=== PATIENT | female | born 1985 | race Caucasian/White ===

== ENCOUNTER 2018-07-20 02:14 | Emergency (ER) | payer MEDICAID ==
[~2018-07-20] VITALS: Ht 157.5 cm; Wt 73.6 kg
[2018-07-20 02:19] VITALS: Ht 157.5 cm; Wt 73.6 kg
[2018-07-20] MEDS ORDERED: CHARCOAL/SORBITOL 50 GM/240 ML BTL PO ONE (03:00)
[2018-07-20] MEDS ORDERED: SOD CHLORIDE 0.9% 1,000 ML IV STA (03:13)
[2018-07-20] MEDS ORDERED: ONDANSETRON 4 MG INJ ONE (04:21)
[2018-07-20] MEDS ORDERED: ONDANSETRON 4 MG INJ IV ONE (04:25)
--- NOTE | 2018-07-20 04:56 | ERD ---
ER Documentation Chief Complaint Chief Complaint BIB RA90 for intentional overdose on Zoloft HPI History is obtained from patient and EMS. This is a 32-year-old female with a history of anxiety who presents to the ER for evaluation of suicide attempt. The patient did take 2 tabs of 15 mg Zoloft at 6 PM, took an additional 8 tabs of 15 mg Zoloft at 2 AM. She states that she has been feeling stressed and took the medication to herself. The patient denies any other coingestions and came to the ER today for evaluation of her symptoms by EMS ROS All systems reviewed and are negative except as per history of present illness. Allergies Allergies: Coded Allergies: No Known Allergy (Unverified , 07/20/18) PMhx/Soc History of Surgery: Yes (RHINOPLASTY 04/04/19) Anesthesia Reaction: No Hx Neurological Disorder: No Hx Respiratory Disorders: No Hx Cardiac Disorders: No Hx Psychiatric Problems: No Hx Miscellaneous Medical Probl: No Hx Alcohol Use: Yes (SOCIALLY ) Hx Substance Use: No Hx Tobacco Use: No Smoking Status: Never smoker Physical Exam Vitals Vital Signs Date Temp Pulse Resp B/P (MAP) Pulse Ox O2 O2 Flow FiO2 Time Delivery Rate 07/20/18 110 21 134/87 100 Room Air 02:27 (103) 07/20/18 98.2 105 24 134/87 100 02:19 (103) Physical Exam INITIAL VITAL SIGNS: Reviewed by me GENERAL: The patient is well developed and appropriate for usual state of health in no apparent distress HEENT: Dry mucous members, pupils equal, round, and reactive to light. EOMI. There is no scleral icterus. NECK: C-spine is soft and supple, there is no meningismus. There is no cervical lymphadenopathy. LUNGS: Clear to auscultation bilaterally. There are no rales, wheezes or rhonchi. HEART: Regular rate and rhythm, no murmurs, clicks, rubs or gallops. ABDOMEN: Soft, non-tender, non-distended. There are bowel sounds in all four quadrants. No rebound or guarding. EXTREMITIES: There is no peripheral cyanosis or edema. No focal swelling or er ythema. NEUROLOGICAL: No myoclonus, no hyperreflexia, the patient moves all four extremities with 5/5 strength. Cranial nerves II - XII are intact. Normal gait. Alert and oriented SKIN: There is no apparent rash or petechiae. HEME/LYMPHATIC: There is no evidence of excessive bruising or lymphedema. PSYCHIATRIC: The patient does is agitated and anxious. Result Diagram: 07/20/1830207/20/18302 Results 24 hrs Laboratory Tests Test 07/20/18 03:03 White Blood Count 8.2 10^3/ul Red Blood Count 4.56 10^6/ul Hemoglobin 12.6 g/dl Hematocrit 38.1 % Mean Corpuscular Volume 83.6 fl Mean Corpuscular Hemoglobin 27.6 pg Mean Corpuscular Hemoglobin Concent 33.1 g/dl Red Cell Distribution Width 13.0 % Platelet Count 279 10^3/UL Mean Platelet Volume 10.4 fl Immature Granulocytes % 0.400 % Neutrophils % 73.3 % Lymphocytes % 21.5 % Monocytes % 4.0 % Eosinophils % 0.6 % Basophils % 0.2 % Nucleated Red Blood Cells % 0.0 /100WBC Immature Granulocytes # 0.030 10^3/ul Neutrophils # 6.0 10^3/ul Lymphocytes # 1.8 10^3/ul Monocytes # 0.3 10^3/ul Eosinophils # 0.1 10^3/ul Basophils # 0.0 10^3/ul Nucleated Red Blood Cells # 0.0 10^3/ul Urine Color YELLOW Urine Clarity CLEAR Urine pH 5.0 Urine Specific [place] 1.013 Urine Ketones TRACE mg/dL Urine Nitrite NEGATIVE mg/dL Urine Bilirubin NEGATIVE mg/dL Urine Urobilinogen NEGATIVE mg/dL Urine Leukocyte Esterase NEGATIVE Jayson/ul Urine Hemoglobin NEGATIVE mg/dL Urine Glucose NEGATIVE mg/dL Urine Total Protein NEGATIVE mg/dl Sodium Level 140 mmol/L Potassium Level 3.8 mmol/L Chloride Level 106 mmol/L Carbon Dioxide Level 22 mmol/L Anion Gap 12 Blood Urea Nitrogen 11 mg/dl Creatinine 0.57 mg/dl Est Glomerular Filtrat Rate mL/min > 60 mL/min Glucose Level 168 mg/dl Calcium Level 9.1 mg/dl Total Bilirubin 0.3 mg/dl Direct Bilirubin 0.00 mg/dl Indirect Bilirubin 0.3 mg/dl Aspartate Amino Transf (AST/SGOT) 29 IU/L Alanine Aminotransferase (ALT/SGPT) 26 IU/L Alkaline Phosphatase 82 IU/L Total Protein 7.7 g/dl Albumin 4.4 g/dl Globulin 3.30 g/dl Albumin/Globulin Ratio 1.33 Salicylates Level < 1.0 mg/dl Urine Opiates Screen Negative Acetaminophen Level < 10.0 ug/ml Urine Barbiturates Negative Urine Amphetamines Screen Negative Urine Benzodiazepines Screen Negative Urine Cocaine Screen Negative Urine Cannabinoids Negative Ethyl Alcohol Level < 10.0 mg/dl Current Medications Medications Dose Sig/Nella Start Time Status Last (Trade) Ordered Route PRN Stop Time Admin Dose Reason Admin 50 gm ONCE ONCE 07/20/18 DC 07/20/18 Charcoal/Sorb PO 03:00 02:46 itol 07/20/18 03:01 (Actidose (Sorbitol)) Sodium 1,000 ml @ Q1H STAT 07/20/18 DC 07/20/18 Chloride 1,000 mls/hr IV 03:13 03:13 07/20/18 04:12 Ondansetron 4 mg STK-MED 07/20/18 DC HCl (Zofran ONCE .ROUTE 04:21 Inj) 07/20/18 04:22 Ondansetron 4 mg ONCE ONCE 07/20/18 DC 07/20/18 HCl (Zofran IV 04:25 04:30 Inj) 07/20/18 04:26 Procedures/MDM EKG: Rate/Rhythm: Sinus tachycardia QRS, ST, T-waves: [No changes consistent w/ acute ischemia] Impression: [No evidence of ischemia or arrhythmia] This 32-year-old female presents the ER after ingesting a total of 500 mg of Zoloft. On my exam the patient is afebrile however she is tachycardic. The patient is alert oriented to person place and time however she does have an anxious affect. She was given activated charcoal however she did vomit. She was given IV fluids. Lab work was obtained which is normal at this time. The patient has no hyperreflexia, no myoclonus, no signs of serotonin syndrome at this time. We did contact poison control who recommends a 6-hour observation in the emergency room. This patient will need to be observed until 8 AM. At that point patient will need to be reevaluated in if she has no signs of serotonin syndrome the patient is medically cleared and can be evaluated by tele-psych for determination of placement. Critical Care: Excluding all billable procedures Time: 44 minutes Treatments/Evaluations: Close monitoring and treatment of unstable vital signs, cardiorespiratory, and neurologic status, while maintaining tight balance of fluid, respiratory, and cardiac interventions. Departure Diagnosis: Primary Impression: Intentional drug overdose Additional Impression: SSRI overdose Condition: GLENN Arevalo DO Jul 20, 2018 04:56
[2018-07-20] MEDS ORDERED: PROP10TA6 PO (05:12)
--- NOTE | 2018-07-20 07:51 | PSY ---
Date/Time of Note Date/Time of Note DATE: 07/20/18 TIME: 07:27 Psychiatric Subjective Eval Consent Pt consented to telemedicine: Yes Subjective Evaluation Patient location: emergency Chief Complaint: BIB RA90 for intentional overdose on Zoloft Reason for consult: "I took my first pill of antidepressants..." History of present illness She stated that she took her first dose of anti-depressant (Zoloft) today and felt "wild" and "super suicidal." She also has been sleeping very little the past few nights. She said she went to [place] [facility] because she was hallucinating due to pain in her head. At [facility] she was scared by a homeless man with a doll and left. Around 1am she took a large number of Zoloft because she is "tired of waking up and looking at myself and now I am hallucinating." She said at first she thought she would go to sleep when she took the pills and then later said she did think she would . She took about 7 pills (all she had). She stated this was a spontaneous act and unplanned. She stated she has had some hallucinations since being in the ED. When asked for specifics she stated, "Well, I pooped the bed." When asked specifically if she had been seeing or hearing things other people could not she stated, "Not yet." When asked if she currently had thoughts about wanting to be or kill herself she said, "No." Past psychiatric history Diagnosed with PTSD due to a bad nose job and was started on Zoloft. Hospitalization: no Family History No family history. 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 Psychiatric Objective Eval Mental Status Examination: Appearance: Groomed Eye Contact: Good Psychomotor Activity: Normal Behavior: Cooperative Speech: Clear, Prolong Speech Latency AFFECT: Blunt Mood: Anxious Though Process: Illogical Thought Content: Normal Suicidal: No Homicidal: No On 72 hour hold: No Orientation: x2 Cognition: Alert Insight: Impared Judgement: Impared Attention Span: Intact Laboratory Results Laboratory Tests Test 07/20/18 03:03 White Blood Count 8.2 10^3/ul Red Blood Count 4.56 10^6/ul Hemoglobin 12.6 g/dl Hematocrit 38.1 % Mean Corpuscular Volume 83.6 fl Mean Corpuscular Hemoglobin 27.6 pg Mean Corpuscular Hemoglobin Concent 33.1 g/dl Red Cell Distribution Width 13.0 % Platelet Count 279 10^3/UL Mean Platelet Volume 10.4 fl Immature Granulocytes % 0.400 % Neutrophils % 73.3 % Lymphocytes % 21.5 % Monocytes % 4.0 % Eosinophils % 0.6 % Basophils % 0.2 % Nucleated Red Blood Cells % 0.0 /100WBC Immature Granulocytes # 0.030 10^3/ul Neutrophils # 6.0 10^3/ul Lymphocytes # 1.8 10^3/ul Monocytes # 0.3 10^3/ul Eosinophils # 0.1 10^3/ul Basophils # 0.0 10^3/ul Nucleated Red Blood Cells # 0.0 10^3/ul Urine Color YELLOW Urine Clarity CLEAR Urine pH 5.0 Urine Specific [place] 1.013 Urine Ketones TRACE mg/dL Urine Nitrite NEGATIVE mg/dL Urine Bilirubin NEGATIVE mg/dL Urine Urobilinogen NEGATIVE mg/dL Urine Leukocyte Esterase NEGATIVE Jayson/ul Urine Hemoglobin NEGATIVE mg/dL Urine Glucose NEGATIVE mg/dL Urine Total Protein NEGATIVE mg/dl Sodium Level 140 mmol/L Potassium Level 3.8 mmol/L Chloride Level 106 mmol/L Carbon Dioxide Level 22 mmol/L Anion Gap 12 Blood Urea Nitrogen 11 mg/dl Creatinine 0.57 mg/dl Est Glomerular Filtrat Rate mL/min > 60 mL/min Glucose Level 168 mg/dl Calcium Level 9.1 mg/dl Total Bilirubin 0.3 mg/dl Direct Bilirubin 0.00 mg/dl Indirect Bilirubin 0.3 mg/dl Aspartate Amino Transf (AST/SGOT) 29 IU/L Alanine Aminotransferase (ALT/SGPT) 26 IU/L Alkaline Phosphatase 82 IU/L Total Protein 7.7 g/dl Albumin 4.4 g/dl Globulin 3.30 g/dl Albumin/Globulin Ratio 1.33 Salicylates Level < 1.0 mg/dl Urine Opiates Screen Negative Acetaminophen Level < 10.0 ug/ml Urine Barbiturates Negative Urine Amphetamines Screen Negative Urine Benzodiazepines Screen Negative Urine Cocaine Screen Negative Urine Cannabinoids Negative Ethyl Alcohol Level < 10.0 mg/dl Assessment and Plan Assessment/Diagnosis Diagnosis Adjustment Disorder with Depressed Mood Recommendation/Plan Multiple antipsychotics: No Discharge Disposition: Psychiatric inpatient Legal Status: Voluntary Other Individual had a significant overdose tonight and, on exam, has an abnormal mental status exam with prolonged speech latency and odd responses to questions at times (eg said "I pooped the bed" when asked about hallucinations). Recommend inpatient admission for safety and further observation. Explained this to patient and who agreed. She does meet 5150 DTS criteria if she changed her mind and could be placed on a hold if needed. SHELIA LINDSEY MD Jul 20, 2018 07:37
--- NOTE | 2018-07-20 14:56 | EN ---
Date/Time of Note Date/Time of Note DATE: 07/20/18 TIME: 14:55 ER Progress Note Observation Note: Time: 4 hours Evaluation: Multiple exams showed improving symptoms and no evidence of clinical decompensation. Patient is now medically cleared, she was evaluated by psychiatry who was placed on a voluntary hold. TAN OSBORN MD Jul 20, 2018 14:56
[2018-07-20 17:47] VITALS: BP 143/92; PULSE 102; RESP 18
== END 2018-07-20 18:04 ==
LOC: E/R 02:14
DX: T43.222A Poisoning by selective serotonin reuptake inhibitors, intentional self-harm, initial encounter (principal); R40.2362 Coma scale, best motor response, obeys commands, at arrival to emergency department; R00.0 Tachycardia, unspecified
CPT/HCPCS: 80053; 80307; 81003; 84703; 85025; 93005; J2405; J7030; Z7610; 36415; 96374

== ENCOUNTER 2018-09-03 05:50 | Emergency (ER) | payer MEDICAID ==
[~2018-09-03] VITALS: Ht 154.9 cm; Wt 68.2 kg
[~2018-09-03 05:50] MED LIST: PROP10TA6 PO
[2018-09-03 05:52] VITALS: Ht 154.9 cm; Wt 68.2 kg
--- NOTE | 2018-09-03 07:18 | PSY ---
Date/Time of Note Date/Time of Note DATE: 09/03/18 TIME: 07:17 Psychiatric Subjective Eval Consent Pt consented to telemedicine: Yes Subjective Evaluation Patient location: emergency Chief Complaint: BIB [employer],took Melatonin 20 tabs & THC 200 mg,denies SI/HI,hx psych Medical history Problems Medical Problems: (1) Intentional drug overdose Status: Acute (2) SSRI overdose Status: Acute Allergies: Coded Allergies: No Known Allergy (Unverified , 07/20/18) Psychiatric Objective Eval Mental Status Examination: Laboratory Results Laboratory Tests Test 09/03/18 06:25 09/03/18 06:35 White Blood Count 8.7 10^3/ul Red Blood Count 5.09 10^6/ul Hemoglobin 13.8 g/dl Hematocrit 42.4 % Mean Corpuscular Volume 83.3 fl Mean Corpuscular Hemoglobin 27.1 pg Mean Corpuscular Hemoglobin Concent 32.5 g/dl Red Cell Distribution Width 14.5 % Platelet Count 349 10^3/UL Mean Platelet Volume 10.0 fl Immature Granulocytes % 0.500 % Neutrophils % 72.7 % Lymphocytes % 22.2 % Monocytes % 4.2 % Eosinophils % 0.1 % Basophils % 0.3 % Nucleated Red Blood Cells % 0.0 /100WBC Immature Granulocytes # 0.040 10^3/ul Neutrophils # 6.4 10^3/ul Lymphocytes # 1.9 10^3/ul Monocytes # 0.4 10^3/ul Eosinophils # 0.0 10^3/ul Basophils # 0.0 10^3/ul Nucleated Red Blood Cells # 0.0 10^3/ul Urine Color STRAW Urine Clarity CLEAR Urine pH 7.0 Urine Specific [place] 1.011 Urine Ketones NEGATIVE mg/dL Urine Nitrite NEGATIVE mg/dL Urine Bilirubin 1+ mg/dL Urine Urobilinogen NEGATIVE mg/dL Urine Leukocyte Esterase NEGATIVE Jayson/ul Urine Microscopic RBC 0 /HPF Urine Microscopic WBC 1 /HPF Urine Squamous Epithelial Cells FEW /HPF Urine Bacteria FEW /HPF Urine Hemoglobin NEGATIVE mg/dL Urine Glucose NEGATIVE mg/dL Urine Total Protein 1+ mg/dl Sodium Level 140 mmol/L Potassium Level 3.7 mmol/L Chloride Level 105 mmol/L Carbon Dioxide Level 14 mmol/L Anion Gap 21 Blood Urea Nitrogen 5 mg/dl Creatinine 0.71 mg/dl Est Glomerular Filtrat Rate mL/min > 60 mL/min Glucose Level 194 mg/dl Calcium Level 9.7 mg/dl Total Bilirubin 0.8 mg/dl Direct Bilirubin 0.00 mg/dl Indirect Bilirubin 0.8 mg/dl Aspartate Amino Transf (AST/SGOT) 28 IU/L Alanine Aminotransferase (ALT/SGPT) 15 IU/L Alkaline Phosphatase 83 IU/L Total Protein 8.2 g/dl Albumin 4.7 g/dl Globulin 3.50 g/dl Albumin/Globulin Ratio 1.34 Serum HCG, Qualitative NEGATIVE Acetaminophen Level < 10.0 ug/ml Ethyl Alcohol Level < 10.0 mg/dl POC Beta HCG, Qualitative NEGATIVE Assessment and Plan Recommendation/Plan Discharge Disposition: Psychiatric inpatient Legal Status: Place involuntary hold Assessment Additional comments: IDENTIFYING INFORMATION: 33 year old Female patient who is currently located at the hospital and for whom psychiatric consultation was requested. SOURCES OF INFORMATION: The patient who appears to be somewhat reliable and the medical records; the nursing staff. CHIEF COMPLAINT: "the medications took me over the edge". HISTORY OF PRESENT ILLNESS: The patient was interviewed via telemedicine in the presence of and under the supervision of nursing staff of the hospital. The consent to conducting this interview via telemedicine was obtained by the nursing staff at the hospital. The patient reports having been depressed lately, has not slept for 8 days, partial anhedonia, reports that she was running towards traffic for unclear reasons, was feeling anxious and was thinking suicide at times. Reports that she took 15 melatonin tablets, CBD oil, 3 antibiotic pills earlier today because she wanted to sleep. The patient denies having low appetite, AH, VH. The patient denies using alcohol heavily or regularly. The patient denies using any other substances. In terms of past psychiatric history, the patient reports having a history of 1 past psychiatric hospitalization. The patient reports having a history of no past suicide attempts. PAST MEDICAL HISTORY: none. CURRENT MEDICATIONS: none. ALLERGIES TO MEDICATIONS: NKDA. LABORATORY TESTS: CBC within normal range,, CMP pending, UDS pending, alcohol level pending, test negative, SOCIAL HISTORY: , 2 children; employed as a hairdresser. REVIEW OF SYSTEMS: Constitutional (e.g., fever, weight loss): negative; Eyes, Ears, Nose, Mouth, Throat: negative; Cardiovascular: negative; Respiratory: negative; Gastrointestinal: negative; Genitourinary: negative; Musculoskeletal: negative; Integumentary (skin and/or breast): negative; Neurological: negative; Psychiatric: as per HPI; Endocrine: negative; Hematologic/Lymphatic: negative; Allergic/Immunologic: negative. MENTAL STATUS EXAMINATION: General Appearance and Behavior: Calm, cooperative with the interview, pleasant with the current interviewer, makes fair eye contact, fairly groomed, no abnormal movements noted, Speech: Regular rate, regular rhythm, normal latency, normal volume, somewhat decreased amount, Flow of thought: sequential, logical, goal-directed, Content of thought: no auditory hallucinations, no visual hallucinations, no delusions, positive for suicidal ideation; no homicidal ideation, Mood: "depressed", Affect: dysthymic, dysphoric, not reactive, Attention: normal based on the interview, Insight: fair, Judgment: poor, Memory: normal based on the interview, Sensorium: alert and oriented to person, place and date. ASSESSMENT: The patient's presentation and history are consistent with the diagnosis of unspecified mood disorder. The patient presents in a major depressive episode in the context of medication noncompliance, psychosocial stressors. No evidence of psychosis, espinoza, hypomania on exam. PLAN: - Medication management: Would start haloperidol 5 mg IM PRN severe agitation q4 hours. Would start lorazepam 2 mg IM PRN severe agitation q4 hours Will defer to the inpatient psychiatry team for other medication changes. - Labs: Please check CMP, Alcohol level, UDS. - Psychotherapy: Provided supportive psychotherapy and psychoeducation. - Disposition: Would recommend involuntary admission to the inpatient psychiatric unit given the severity of the patient's psychiatric condition and the fact that the patient is an imminent danger to self and/or others so long as the patient has been cleared medically for admission to psychiatry. Inpatient psychiatric adm ission is at this time the least restrictive environment where the patient can receive the psychiatric care that is needed. Would place on suicide precautions. The patient fulfills criteria for being placed on an involuntary hold for being a danger to self due to a psychiatric disorder. Discussed about the above plan with Dr. Pruitt. ISAURA LOPEZ MD Sep 03, 2018 07:18
--- NOTE | 2018-09-03 08:04 | ERD ---
ER Documentation Chief Complaint Chief Complaint RAAD BONILLA,took Melatonin 20 tabs & THC 200 mg,denies SI/HI,hx psych HPI 33-year-old woman with history of psychiatric illness brought in by EMS and [employer] officers for running into traffic trying to hurt her self, she also admitted to using 20 tablets of melatonin. Episode occurred after argument with her . She admits to wanting to hurt her self and has a long history of psyc hiatric illness. She denies vomiting or diarrhea, no chest pain or shortness of breath, no recent fevers or chills, no complaints of trauma. ROS All systems reviewed and are negative except as per history of present illness. Medications Home Meds Reported Medications Propranolol Hcl* (Propranolol Hcl*) 10 Mg Tablet, 10 MG PO BID for 30 Days, #60 07/20/18 Allergies Allergies: Coded Allergies: No Known Allergy (Unverified , 07/20/18) PMhx/Soc History of Surgery: Yes (RHINOPLASTY 04/04/19) Anesthesia Reaction: No Hx Neurological Disorder: No Hx Respiratory Disorders: No Hx Cardiac Disorders: No Hx Psychiatric Problems: Yes (depression ptds) Hx Miscellaneous Medical Probl: No Hx Alcohol Use: Yes (SOCIALLY ) Hx Substance Use: No Hx Tobacco Use: No Smoking Status: Never smoker FmHx Family History: No diabetes Physical Exam Vitals Vital Signs Date Temp Pulse Resp B/P (MAP) Pulse Ox O2 O2 Flow FiO2 Time Delivery Rate 09/03/18 99.0 174 18 112/81 98 05:52 (91) Physical Exam GENERAL: Well-developed, well-nourished, depressed affect, afebrile HEENT: Moist mucous membranes, pink conjunctiva, no cervical spine tenderness or step-off deformities, no goiter, no jaundice or icterus, NEURO: Alert and oriented 3, cranial nerves II through XII intact bilaterally, pupils equal round reactive to light, no focal deficits or facial asymmetry, sensation intact distally Strength 5/5 in upper and lower extremities bilaterally CARDIAC: Regular rate and rhythm, no murmurs rubs or gallops LUNGS: Clear bilaterally no wheezing crackles or stridor SKIN: Warm and dry to touch, no abrasions, contusions, or hematomas, no lacerations, no ecchymosis, no target lesions, and without ulcers PSYCH: Depressed affect Result Diagram: 09/03/18 0625 09/03/18 0625 Results 24 hrs Laboratory Tests Test 09/03/18 06:25 09/03/18 06:35 White Blood Count 8.7 10^3/ul Red Blood Count 5.09 10^6/ul Hemoglobin 13.8 g/dl Hematocrit 42.4 % Mean Corpuscular Volume 83.3 fl Mean Corpuscular Hemoglobin 27.1 pg Mean Corpuscular Hemoglobin Concent 32.5 g/dl Red Cell Distribution Width 14.5 % Platelet Count 349 10^3/UL Mean Platelet Volume 10.0 fl Immature Granulocytes % 0.500 % Neutrophils % 72.7 % Lymphocytes % 22.2 % Monocytes % 4.2 % Eosinophils % 0.1 % Basophils % 0.3 % Nucleated Red Blood Cells % 0.0 /100WBC Immature Granulocytes # 0.040 10^3/ul Neutrophils # 6.4 10^3/ul Lymphocytes # 1.9 10^3/ul Monocytes # 0.4 10^3/ul Eosinophils # 0.0 10^3/ul Basophils # 0.0 10^3/ul Nucleated Red Blood Cells # 0.0 10^3/ul Urine Color STRAW Urine Clarity CLEAR Urine pH 7.0 Urine Specific [place] 1.011 Urine Ketones NEGATIVE mg/dL Urine Nitrite NEGATIVE mg/dL Urine Bilirubin 1+ mg/dL Urine Urobilinogen NEGATIVE mg/dL Urine Leukocyte Esterase NEGATIVE Jayson/ul Urine Microscopic RBC 0 /HPF Urine Microscopic WBC 1 /HPF Urine Squamous Epithelial Cells FEW /HPF Urine Bacteria FEW /HPF Urine Hemoglobin NEGATIVE mg/dL Urine Glucose NEGATIVE mg/dL Urine Total Protein 1+ mg/dl Sodium Level 140 mmol/L Potassium Level 3.7 mmol/L Chloride Level 105 mmol/L Carbon Dioxide Level 14 mmol/L Anion Gap 21 Blood Urea Nitrogen 5 mg/dl Creatinine 0.71 mg/dl Est Glomerular Filtrat Rate mL/min > 60 mL/min Glucose Level 194 mg/dl Calcium Level 9.7 mg/dl Total Bilirubin 0.8 mg/dl Direct Bilirubin 0.00 mg/dl Indirect Bilirubin 0.8 mg/dl Aspartate Amino Transf (AST/SGOT) 28 IU/L Alanine Aminotransferase (ALT/SGPT) 15 IU/L Alkaline Phosphatase 83 IU/L Total Protein 8.2 g/dl Albumin 4.7 g/dl Globulin 3.50 g/dl Albumin/Globulin Ratio 1.34 Serum HCG, Qualitative NEGATIVE Salicylates Level < 1.0 mg/dl Urine Opiates Screen NEGATIVE Acetaminophen Level < 10.0 ug/ml Urine Barbiturates NEGATIVE Urine Amphetamines Screen NEGATIVE Urine Benzodiazepines Screen NEGATIVE Urine Cocaine Screen NEGATIVE Urine Cannabinoids POSITIVE Ethyl Alcohol Level < 10.0 mg/dl POC Beta HCG, Qualitative NEGATIVE Procedures/MDM Security one-to-one watch was established and tele-psychiatry was contacted. CBC and electrolytes were normal, liver function tests normal, test negative, drug screen positive for cannabinoids, ethanol level negative Tele-psychiatrist evaluated the patient and recommended involuntary hold and transfer to [facility] facility Patient's behavioral symptoms have stabilized while in the department. Patient is medically cleared and appropriate for psychiatric evaluation and work up. No e/o neurologic, toxic, infectious, or metabolic cause. PET has been called and they recommended 5150 psychiatric hold Departure Diagnosis: Primary Impression: Psychosis Psychosis type: unspecified psychosis type Qualified Codes: F29 - Unspecified psychosis not due to a substance or known physiological condition Additional Impression: Suicidal ideation Condition: TAN Mejia MD Sep 03, 2018 08:04
[2018-09-03] MEDS ORDERED: OXYCODONE/ACETAMINOPHEN (5/325) TAB PO ONE (11:30)
[2018-09-03] MEDS ORDERED: HYDROCODONE/APAP (10/325) TAB PO ONE ×2 (16:30→20:00)
--- NOTE | 2018-09-03 17:36 | EN ---
Date/Time of Note Date/Time of Note DATE: 09/03/18 TIME: 17:35 ER Progress Note The patient keeps telling the nurses that she has an occipital headache and she has had headaches for the past 6 months to a year. She states that she is requesting a CAT scan. No focal neurological complaints headache is constant no photophobia phonophobia no stiff neck or fever. We will order a CT scan of head JAZLYN GURROLA DO Sep 03, 2018 17:36
[2018-09-03 19:30] VITALS: BP 118/89; PULSE 86; RESP 16
== END 2018-09-03 20:00 ==
LOC: E/R 05:50
DX: F29 Unspecified psychosis not due to a substance or known physiological condition (principal); R40.2142 Coma scale, eyes open, spontaneous, at arrival to emergency department; R40.2252 Coma scale, best verbal response, oriented, at arrival to emergency department; R40.2362 Coma scale, best motor response, obeys commands, at arrival to emergency department; R51 Headache
CPT/HCPCS: 36415; 70450; 80053; 80307; 81001; 81025; 84703; 85025; Z7502; Z7610